=== PATIENT | male | born 2000 | race Caucasian/White ===

== ENCOUNTER 2024-12-17 00:48 | Day surgery (SDC) | payer SELFPAY ==
[2024-12-17] VITALS (12 sets, daily range): BP systolic 109–154; BP diastolic 57–91; PULSE 60–88; RESP 14–23; TEMP 36.3–36.6; O2SAT 98–100
--- OUTSIDE RECORDS SUMMARY | 2024-12-17 00:50 | XMS_ITS | Clinical Summary ---
Author Organization [facility] Address [address] [place] [address] Care Team Providers Care Cutter Operator Brick Name Role Phone Unavailable Primary Care Provider Unavailabl e Source Comments [facility],non-owned Affiliates and Associated Physician Practices is amultiple site organization consisting of ambulatory clinics and hospital sitesin [place], [place], [place] and [place]. This disclosure is being madepursuant to the Care Everywhere program and may not contain all information available regarding this patient. 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 Gender Identity Not on file Sexual Orientation Not on file Plan of Treatment Health Maintenance Due Date Last Done Comments HIV SCREENING 2014 HPV VACCINE (1 - Male 3-dose series) 2014 HEPATITIS C SCREENING 06/08/2017 DTAP/TDAP/TD VACCINES (1 - Tdap) 2018 HEPATITIS B VACCINE (1 of 3 - 19+ 3-dose series) 2018 COVID-19 VACCINE (1 - 2023-2 5 season) 2024 DEPRESSION SCREENING 08/01/2024 INFLUENZA VACCINE (Season Ended) 2025 ZOSTER VACCINE (1 of 2) 2049 HIB VACCINE Aged Out No longer eligi ble based on patient's age to complete this topic MENINGOCOCCAL (Group B) VACC INE SHARED DECISION-MAKING Aged Out No longer eligibl e based on patient's age to complete this topic MENINGOCOCCAL GROUPS A/C/Y/W VACCINE Aged Out No longer eligible b ased on patient's age to complete this topic PNEUMOCOCCAL VACCINE Aged Out No long er eligible based on patient's age to complete this topic Insurance MEDICAID - [place]
--- OUTSIDE RECORDS SUMMARY | 2024-12-17 00:50 | XMS_ITS | Clinical Summary ---
Author Organization [facility] Address [address] [place] [address] Care Team Providers Care Senior Test Engineer Name Role Phone Unavailable Primary Care Provider Unavailabl e Social History Tobacco Use Types Packs/Day Years Used Date Smoking Tobacco: Never Assessed Sex and Gender Information Value Date Recorded Sex Assigned at Not on file Legal Sex Male 5:58 PM CDT Gender Identity Not on file Sexual Orientation Not on file Plan of Treatment Health Maintenance Due Date Last Done Comments Annual Physical 2002 HPV Vaccines (1 - Male 3-dos e series) 2014 Hepatitis C 2017 DTaP, Tdap and Td Vaccines ( 1 - Tdap) 2018 Hepatitis B Vaccines (1 of 3 - 19+ 3-dose series) 2018 COVID-19 Vaccine (1 - 2023-2 5 season) 2024 Meningococcal B Vaccine Aged Out No l onger eligible based on patient's age to complete this topic Meningococcal Vaccine Aged Out No tiffanie liz eligible based on patient's age to complete this topic Pneumococcal Vaccine: Pediat rics (0 to 5 Years) and At-Risk Patients (6 to 49 Years) Aged Out No longer eligible b ased on patient's age to complete this topic RSV Immunizations Under 20 Months Aged Out No longer eligible based on patient's age to complete this topic
--- OUTSIDE RECORDS SUMMARY | 2024-12-17 02:20 | XMS_ITS | Clinical Summary ---
Author Organization [facility] Address [address] [place] [address] Phone Care Team Providers Care Digital Intern Name Role Phone Unavailable Primary Care Provider Unavailabl e Allergies No known active allergies Medications No known medications Active Problems No known active problems Family History Medical History Relation Name Comments No Known Problems Father No Known Problems Mother Relation Name Status Comments Father Mother Social History Tobacco Use Types Packs/Day Years Used Date Smoking Tobacco: Never Smokeless Tobacco: Never Alcohol Use Standard Drinks/Week Comments Not Currently 0 (1 standard drink = 0.6 oz pur e alcohol) PHQ-2 Answer Date Recorded Total Score - Questions 1-9 0 09/02 Sexually Active Control Partners Comments Yes Sex and Gender Information Value Date Recorded Sex Assigned at Not on file 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 Gender Identity Not on file Sexual Orientation Not on file Last Filed Vital Signs Vital Sign Reading Time Taken Comments Blood Pressure 116/80 09/24/2021 10:55 AM RETAIL GREETER Pulse 75 09/24/2021 10:55 AM RETAIL GREETER Temperature 36.9 C (98.4 F) 09/24/2021 10:55 AM RETAIL GREETER Respiratory Rate 14 09/24/2021 10:55 AM RETAIL GREETER Oxygen Saturation 98% 09/24/2021 10:55 AM RETAIL GREETER Inhaled Oxygen Concentration - - Weight 98.1 kg (216 lb 3.2 oz) 09/24/2021 10:55 AM RETAIL GREETER Height 182.9 cm (6') 09/24/2021 10:55 AM RETAIL GREETER Body Mass Index 29.32 09/24/2021 10:55 AM RETAIL GREETER Plan of Treatment Health Maintenance Due Date Last Done Comments Hepatitis C Virus (HCV) Screening 1999 Human Papillomavirus (HPV) Immunization (2 - Male 2-dose series) 12/06/2011 06/07/2011 SARS-COV-2 Immunization (3 - season) 2024 11/26/2020, 10/28/2020 Influenza Immunization (Season Ended) 2025 07/01/2021, 09/25/2020 Respiratory Syncytial Virus (RSV) Immunization (Adult) (1 - 1-dose 75+ series) 2074 Hepatitis B Immunization Completed 001, 1999, 1999 Pneumococcal Immunization Combined Aged Out 03/20/2001 No longer eligible based on patient's age to complete this topic DTaP/Tdap/Td Immunization Discontinued 2010, 05/07/2005, 05/20/2003, Additional history exists Meningococcal Immunization (ACWY) Aged Out 06/07/2011 No longer eligible based on patient's age to complete this topic TdaP Immunization Completed 06/07/2011 Rotavirus Immunization Aged Out No lo nger eligible based on patient's age to complete this topic Insurance
--- OUTSIDE RECORDS SUMMARY | 2024-12-17 02:20 | XMS_ITS | Encounter Summary ---
Author Organization [facility] Address [address] [place] [address] Care Team Providers Care Pouncer Name Role Phone No, Physician Primary Care Provider Kevin Allen MD Unavailable [phone] Encounter Details Date Type Department Care Team (Late st Contact Info) Description 10/14/2021 Documentation [facility] [address] [place] [address] [place] [id number] [address] Social History Tobacco Use Types Packs/Day Years Used Date Smoking Tobacco: Never AUDIT-C Answer Date Recorded Q1: How often do you have a drink containing alc ohol? 2-4 times a month 10/14/2021 Q2: How many drinks containi ng alcohol do you have on a typical day when you are drinking? 1 or 2 10/14/2021 Q3: How often do you have si x or more drinks on one occasion? Less than monthly 10/14/2021 Sex and Gender Information Value Date Recorded Sex Assigned at Not on file Legal Sex Male 8:50 AM CDT Gender Identity Not on file Sexual Orientation Not on file documented as of this encounter Functional Status documented as of this encounter Plan of Treatment Not on file documented as of this encounter Visit Diagnoses Not on filedocumented in this encounter Care Teams Pouncer Relationship Specialty Start Date End Date No, Physician PCP - General 03/24/21 [place] [id number] [address] Consulting Physician Gastroenterology 10/14/21 documented as of this encounter
--- OUTSIDE RECORDS SUMMARY | 2024-12-17 02:20 | XMS_ITS | Referral Summary ---
Author Organization [address] Address [address] [place] [address] Care Team Providers Care Echo Vasc Tech Name Role Phone No, Physician Primary Care Provider [phone] Kevin Allen MD Unavailable [phone] Allergies No known active allergies Medications pantoprazole DR (PROTONIX) 40 mg EC tablet Take 1 tablet (40 mg total) by mouth daily 30 tablet 10/14/2021 Active Active Problems Problem Noted Date Diagnosed Date Food bolus obstruction of intestine 10/14/2021 Immunizations Immunization Administration Dates Next Due Influenza, Unspecified 07/01/2021 Social History Tobacco Use Types Packs/Day Years [...] Sign Reading Time Taken Comments Blood Pressure 117/62 10/14/2021 11:15 AM CDT Pulse 84 10/14/2021 11:15 AM CDT Temperature 37.3 C (99.2 F) 10/14/2021 10:35 AM CDT Respiratory Rate 19 10/14/2021 11:15 AM CDT Oxygen Saturation 96% 10/14/2021 11:15 AM CDT Inhaled Oxygen Concentration - - Weight 95 kg (209 lb 8 oz) 10/14/2021 1:23 AM CD T Height 180.3 cm (5' 11 ) 10/14/2021 1:23 AM CDT Body Mass Index 29.22 10/14/2021 1:23 AM CDT Plan of Treatment Not on file Insurance [facility] ACCESS OOS [facility] ACC[facility]OS Advance Directives For more information, please contact: [phone] * Full Code (Latest Code Status on File) Date Activated Date Inactivated Comments 10/14/2021 9:36 AM 10/14/2021 6:11 PM * Full Code Date Activated Date Inactivated Comments 10/14/2021 1:24 AM 10/14/2021 9:36 AM Care Teams Echo Vasc Tech Relationship Specialty Start Date End Date No, Physician PCP - General 03/24/21 [place] [id number] [address] Consulting Physician Gastroenterology 10/14/21
--- OUTSIDE RECORDS SUMMARY | 2024-12-17 02:20 | XMS_ITS | Clinical Summary ---
Author Organization [address] Address [address] [place] [address] Care Team Providers Care Media Marketing Manager Name Role Phone No, Physician Primary Care Provider [phone] Kevin Allen MD Unavailable Allergies No known active allergies Medications pantoprazole DR (PROTONIX) 40 mg EC tablet Take 1 tablet (40 mg total) by mouth daily 30 tablet 10/14/2021 Active Active Problems Problem Noted Date Diagnosed Date Food bolus obstruction of intestine 10/14/2021 Immunizations Immunization Administration Dates Next Due Influenza, Unspecified 07/01/2021 Family History Medical History Relation Name Comments [...] on file Sexual Orientation Not on file Obstetrics History Last Filed Vital Signs Vital Sign Reading [...] Plan of Treatment Not on file Insurance [employer] O[employer] Advance Directives For more information, please contact: [phone] * Full Code (Latest Code Status on File) Date Activated Date Inactivated Comments 10/14/2021 9:36 AM 10/14/2021 6:11 PM * Full Code Date Activated Date Inactivated Comments 10/14/2021 1:24 AM 10/14/2021 9:36 AM Care Teams Media Marketing Manager Relationship Specialty Start Date End Date No, Physician PCP - General 03/24/21 [place] [id number] [address] Consulting Physician Gastroenterology 10/14/21
--- OUTSIDE RECORDS SUMMARY | 2024-12-17 02:20 | XMS_ITS | Clinical Summary ---
Author Organization [facility] Address [address] [place] [address] Care Team Providers Care Dialysis Technician Name Role Phone Unavailable Primary Care Provider [...]
--- OUTSIDE RECORDS SUMMARY | 2024-12-17 02:20 | XMS_ITS | Clinical Summary ---
Author Organization [facility] Address [address] [place] [address] Care Team Providers Care Steam And Gas Turbines Assembler Name Role Phone Unavailable Primary Care Provider Unavailabl e Source Comments [facility],non-owned Affiliates and Associated Physician Practices is amultiple site organization consisting of ambulatory clinics and hospital sitesin [place], [place], [place] and [place]. This disclosure is being madepursuant to the Care Everywhere program and may not contain all information available regarding this patient. 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
--- NOTE | 2024-12-17 02:26 | ED_ITS ---
HPI - Nausea/Vomiting/Diarrhea General Chief complaint: Skin/Abscess/Foreign Body Stated complaint: steak food bolus Time Seen by Provider: 12/17/24 01:50 History of Present Illness HPI Narrative: Patient was had history of food bolus requiring endoscopy presents here with what feels like food bolus, with steak stuck in his throat. Cannot keep anything down without throwing up Related Data Allergies Allergy/AdvReac Type Severity Reaction Status Date / Time No Known Allergies Allergy Unverified 12/17/24 00:49 Review of Systems Review of Systems: All systems reviewed & are unremarkable except as noted in HPI and below Exam Narrative: EXAMINATION OF ORGAN SYSTEMS/BODY AREAS: Constitutional: Vital signs per nursing GENERAL:[No acute distress, non-toxic appearing.] Spitting into cup HEAD: Normal with no signs of head trauma. EYES: EOMI, conjunctiva normal ENT: Hearing grossly intact LUNGS: Nonlabored breathing. HEART: [Regular rate and rhythm] ABD: [Soft], [nontender to palpation] EXT: Normal range of motion SKIN: [No rashes or lesions.] NEURO: [Alert and oriented x 3. No gross focal sensory or strength deficits.] PSYCH: Normal affect Course Vital Signs Vital signs: Vital Signs Temperature 97.4 F L 12/17/24 00:51 Pulse Rate 67 12/17/24 00:51 Respiratory Rate 18 12/17/24 00:51 Blood Pressure 138/77 12/17/24 00:51 Pulse Oximetry 99 12/17/24 00:51 Oxygen Delivery Room Air 12/17/24 00:51 Temperature 97.4 F L 12/17/24 00:51 Pulse Rate 67 12/17/24 00:51 Respiratory Rate 18 12/17/24 00:51 Blood Pressure 138/77 12/17/24 00:51 Pulse Oximetry 99 12/17/24 00:51 Oxygen Delivery Room Air 12/17/24 00:51 MDM - Nausea/Vomiting/Diarrhea MDM Narrative Medical decision making narrative: Patient presents with what feels like a food bolus. Had this in the past requiring endoscopy I did try swallow of carbonated beverage while jumping which patient obliged with then threw up immediately Discussed with GI who will schedule patient for 1st thing in the morning for OR. Recommended trying glucagon which is ordered Will likely be discharged after OR per pairer substandard Discharge Plan Discharge Clinical Impression: Food bolus obstruction of intestine Patient Disposition: Still a Patient Condition: Stable Patient Language: Dominican Follow-up/Referrals: PHYSICIAN,BARREL RIBS SOLDERER [Primary Care Provider] -
[2024-12-17 04:43] LABS: Basophils Absolute Auto 0.1 K/mm3 (0.0-0.1); Basophils Percent Auto 0.5 % (0.2-1.2); Eosinophils Absolute Auto 0.8 K/mm3 (0-0.3); Eosinophils Percent Auto 7.7 % (0-4.4); Hematocrit 47.3 % (42.0-52.0); Hemoglobin 15.4 g/dL (14.0-18.0); Immature Granulocyte Absolute 0.05 K/mm3 (0.00-0.031); Immature Granulocyte Percent A 0.5 % (0-0.5); Lymphocytes Percent Auto 29.6 % (18.3-44.2); Mean Corpuscular HGB Conc 32.6 g/dl (32-36); Mean Corpuscular Hemoglobin 28.9 pg (26-34); Mean Corpuscular Volume 88.7 fl (80-100); Mean Platelet Volume 10.7 fl (7.4-10.4); Monocytes Absolute Auto 0.6 K/mm3 (0.1-0.6); Monocytes Percent Auto 5.5 % (2.6-8.5); Neutrophils Absolute Auto 5.7 K/mm3 (1.3-6.7); Neutrophils Percent Auto 56.2 % (45.5-73.1); Platelet Count Result 241 k/mm3 (150-375); Red Blood Count 5.33 M/mm3 (4.6-6.20); Red Cell Distribution Width 12.8 % (11.5-14.5); White Blood Count 10.1 K/mm3 (4.5-10.0)
[2024-12-17 04:54] LABS: Anion Gap 10 mmol/L (4-12); Blood Urea Nitrogen 14 mg/dL (9-20); Calcium 9.4 mg/dL (8.4-10.2); Carbon Dioxide 26 mmol/L (22-30); Chloride 104 mmol/L (98-107); Estimated CRCL calculation 113 ml/min; Estimated Glomerular Filt Rate > 60; Glucose 90 mg/dL (65-110); Potassium 3.9 mmol/L (3.4-5.0); Sodium 140 mmol/L (137-145)
[2024-12-17] MEDS: LACTATED RINGERS 1,000 ML 150 ML IV CONT ×2 (05:39→05:45)
--- NOTE | 2024-12-17 05:49 | WPDANESEPPF ---
Anes - Initial Pre Proc Eval Procedure: Operation Date: 12/17/24 06:00 Proposed Procedures p Esophagogastroduodenoscopy - Andrea Méndez MD Date/Time: 12/17/24 05:49 Surgeon: Dev CAR Pre Op Diagnosis: steak food bolus Patient Data Age: 24 Gender: M Height: 1.8 m Weight: 84 kg Last Vital Signs Temp 97.8 F 12/17/24 05:37 Pulse 74 12/17/24 05:37 Resp 18 12/17/24 05:37 BP 145/80 H 12/17/24 05:37 Pulse Ox 99 12/17/24 05:37 O2 Del Method Room Air 12/17/24 05:37 Allergies Allergy/AdvReac Type Severity Reaction Status Date / Time No Known Allergies Allergy Verified 12/17/24 05:36 Laboratory Tests 12/17/24 12/17/24 04:37 04:38 WBC 10.1 H K/mm3 (4.5-10.0) RBC 5.33 M/mm3 (4.6-6.20) Hgb 15.4 g/dL (14.0-18.0) Hct 47.3 % (42.0-52.0) MCV 88.7 fl (80-100) MCH 28.9 pg (26-34) MCHC 32.6 g/dl (32-36) RDW 12.8 % (11.5-14.5) Plt Count 241 k/mm3 (150-375) MPV 10.7 H fl (7.4-10.4) Immature Gran % (Auto) 0.5 % (0-0.5) Neut % (Auto) 56.2 % (45.5-73.1) Lymph % (Auto) 29.6 % (18.3-44.2) Robertson % (Auto) 5.5 % (2.6-8.5) Eos % (Auto) 7.7 H % (0-4.4) Baso % (Auto) 0.5 % (0.2-1.2) Lymph # (Auto) 3.00 K/mm3 (0.9-3.2) Robertson # (Auto) 0.6 K/mm3 (0.1-0.6) Eos # (Auto) 0.8 H K/mm3 (0-0.3) Baso # (Auto) 0.1 K/mm3 (0.0-0.1) Abs Immat Gran (auto) 0.05 H K/mm3 (0.00-0.031) Absolute Neuts (auto) 5.7 K/mm3 (1.3-6.7) Absolute Nucleated RBC 0.000 K/mm3 (0.0-0.012) Nucleated RBC % 0.0 % (0.0-0.2) Sodium 140 mmol/L (137-145) Potassium 3.9 mmol/L (3.4-5.0) Chloride 104 mmol/L (98-107) Carbon Dioxide 26 mmol/L (22-30) Anion Gap 10 mmol/L (4-12) BUN 14 mg/dL (9-20) Creatinine 0.94 mg/dL (0.7-1.3) Estim Creat Clear Calc 113 ml/min Estimated GFR > 60 (59 - ) Glucose 90 mg/dL (65-110) Calcium 9.4 mg/dL (8.4-10.2) Patient hx anesthesia problems: none Family hx anesthesia problems: none Results Review: All pre-operative results and documents have been reviewed as part of the pre-operative evaluation. [facility] Past Medical History Medical History (Updated 12/17/24 @ 05:52 by Ivanna Moreno CRNA) Food bolus obstruction of intestine Anes - Eval Final PreProcedure Day of Procedure 12/17/24 05:49 Heart: regular rate and rhythm Lungs: clear to auscultation Airway: Mallampati scale class II Neurological: alert and oriented Last oral intake: >/= 8 hours ASA classification: II Emergent: no Anesthetic plan: proceed Anesthesia type and monitoring: general (GETT as back-up) GIVS and standard monitoring Results Review: All pre-operative results and documents have been reviewed as part of the pre-operative evaluation. Informed Consent: The patient's anesthetic plan and its attendant risks and benefits were discussed with the patient/family/POA. Questions were solicited and answers provided to the satisfaction of the patient/family/POA.
--- NOTE | 2024-12-17 06:39 | P.HP_ITS ---
H&P: HPI History of Present Illness Date/Time: 12/17/24 06:39 Chief Complaint: Food impaction Narrative: this patient has been suffering from intermittent dysphagia for several years, since childhood. Approximately 2 years ago he had a food impaction event being treated at [facility] but no definite diagnosis was made. Yesterday around 6:00 p.m. he felt severe dysphagia after eating meat, and tried to retch and drink water unsuccessfully. He decided to come to the emergency room around midnight. Review of Systems Review of Systems: All systems reviewed & are unremarkable except as noted in HPI and below Meds Home Medications and Allergies Allergies Allergy/AdvReac Type Severity Reaction Status Date / Time No Known Allergies Allergy Verified 12/17/24 05:36 Vital Signs Vital Signs - 24 hr 12/17/24 00:51 12/17/24 04:27 12/17/24 04:30 Temperature 97.4 F L Pulse Rate 67 76 69 Respiratory Rate 18 14 15 Blood Pressure 138/77 Pulse Oximetry 99 99 98 Oxygen Delivery Room Air 12/17/24 04:45 12/17/24 05:08 12/17/24 05:15 Temperature Pulse Rate 72 86 88 Respiratory Rate 18 20 23 H Blood Pressure 144/79 H Pulse Oximetry 98 98 100 Oxygen Delivery 12/17/24 05:16 12/17/24 05:28 12/17/24 05:37 Temperature 97.8 F Pulse Rate 71 74 Respiratory Rate 19 18 Blood Pressure 154/88 H 145/91 H 145/80 H Pulse Oximetry 98 99 Oxygen Delivery Room Air Exam Const: General: cooperative and healthy appearing Resp: Effort & Inspection: normal respiratory effort and able to speak in complete sentences Auscultation: clear to auscultation bilaterally Cardio: Rate: regular rate Rhythm: regular rhythm GI: Inspection: normal to inspection GI Palp: No No hepatosplenomegaly present Auscultation: normal bowel sounds Rectal Exam: deferred Skin: General skin exam: normal color Psych: Appearance: grossly normal Mental Status: mental status grossly normal H&P: Results Labs Labs: Short CBC 12/17/24 Range/Units 04:38 WBC 10.1 H (4.5-10.0) K/mm3 Hgb 15.4 (14.0-18.0) g/dL Hct 47.3 (42.0-52.0) % Plt Count 241 (150-375) k/mm3 [facility] 12/17/24 04:37 Sodium 140 Potassium 3.9 Chloride 104 Carbon Dioxide 26 BUN 14 Creatinine 0.94 Glucose 90 Calcium 9.4 Assessment and Plan Assessment and plan (1) Food impaction of esophagus: Code(s): T18.128A - Food in esophagus causing other injury, initial encounter; W44.F3XA - Food entering into or through a natural orifice, initial encounter Status: Acute Assessment and Plan: will proceed with EGD. The patient is deemed a good candidate for the procedure. Consent signed. Will proceed.
--- OUTSIDE RECORDS SUMMARY | 2024-12-17 06:54 | XMS_ITS | Clinical Summary ---
Author Organization [facility] Address [address] [place] [address] Care Team Providers Care Perioperative Educator Name Role Phone Unavailable Primary Care Provider Unavailabl e Source Comments [facility],non-owned Affiliates and Associated Physician Practices is amultiple site organization consisting of ambulatory clinics and hospital sitesin [place], [place], [place] and [place]. This disclosure is being madepursuant to the Care Everywhere program and may not contain all information available regarding this patient. Last updated 18.[facility] [employer] Social History Tobacco Use Types Packs/Day Years Used Date Smoking Tobacco: Never Assessed Sex and Gender Information Value Date Recorded Sex Assigned at Not on file Legal Sex Male 5:39 AM CHUTE PULLER Gender Identity Not on file Sexual Orientation [...]
--- OUTSIDE RECORDS SUMMARY | 2024-12-17 06:54 | XMS_ITS | Clinical Summary ---
Author Organization [address] Address [address] [place] [address] Care Team Providers Care Accounts Receivable Administrator Name Role Phone No, Physician Primary Care Provider [phone] Kevin Allen MD Unavailable Allergies No known [...] Plan of Treatment Not on file Insurance [employer] OOS [employer] Advance Directives For more information, please contact: [phone] * Full Code (Latest Code Status on File) Date Activated Date Inactivated Comments 10/14/2021 9:36 AM 10/14/2021 6:11 PM * Full Code Date Activated Date Inactivated Comments 10/14/2021 1:24 AM 10/14/2021 9:36 AM Care Teams Accounts Receivable Administrator Relationship Specialty Start Date End Date No, Physician PCP - General 03/24/21 [place] [id number] [address] Consulting Physician Gastroenterology 10/14/21
--- OUTSIDE RECORDS SUMMARY | 2024-12-17 06:54 | XMS_ITS | Clinical Summary ---
Author Organization [facility] Address [address] [place] [place] [address] Phone Care Team Providers Care Rehab Spec Name Role Phone Unavailable Primary Care Provider [...] on file Legal Sex Male 12:51 PM CHIEF TECHNICIAN X RAY Gender Identity Not on file Sexual Orientation Not on file Last Filed Vital Signs Vital Sign Reading Time Taken Comments Blood Pressure 116/80 09/24/2021 10:55 AM CHIEF TECHNICIAN X RAY Pulse 75 09/24/2021 10:55 AM CHIEF TECHNICIAN X RAY Temperature 36.9 C (98.4 F) 09/24/2021 10:55 AM CHIEF TECHNICIAN X RAY Respiratory Rate 14 09/24/2021 10:55 AM CHIEF TECHNICIAN X RAY Oxygen Saturation 98% 09/24/2021 10:55 AM CHIEF TECHNICIAN X RAY Inhaled Oxygen Concentration - - Weight 98.1 kg (216 lb 3.2 oz) 09/24/2021 10:55 AM CHIEF TECHNICIAN X RAY Height 182.9 cm (6') 09/24/2021 10:55 AM CHIEF TECHNICIAN X RAY Body Mass Index 29.32 09/24/2021 10:55 AM CHIEF TECHNICIAN X RAY Plan of Treatment Health Maintenance Due Date [...]
--- OUTSIDE RECORDS SUMMARY | 2024-12-17 06:54 | XMS_ITS | Referral Summary ---
Author Organization [address] Address [address] [place] [address] Care Team Providers Care Mixer Helper Name Role Phone No, Physician Primary Care Provider [phone] Kevin Allen MD Unavailable Allergies No known [...] Plan of Treatment Not on file Insurance [employer] ACCESS OOS [employer] ACC[employer]OS [employer]OS Advance Directives For more information, please contact: [phone] * Full Code (Latest Code Status on File) Date Activated Date Inactivated Comments 10/14/2021 9:36 AM 10/14/2021 6:11 PM * Full Code Date Activated Date Inactivated Comments 10/14/2021 1:24 AM 10/14/2021 9:36 AM Care Teams Mixer Helper Relationship Specialty Start Date End Date No, Physician PCP - General 03/24/21 [place] [id number] [address] Consulting Physician Gastroenterology 10/14/21
--- OUTSIDE RECORDS SUMMARY | 2024-12-17 06:54 | XMS_ITS | Encounter Summary ---
Author Organization [facility] Healthcare Address [address] [place] [address] Care Team Providers Care Electric Dolly Operator Name Role Phone No, Physician Primary Care Provider Kevin Allen MD Unavailable Encounter Details Date Type Department Care Team (Late st Contact Info) Description 10/14/2021 Documentation [facility] [address] [place] [address] [place] [id number] [address] Social History Tobacco Use Types [...] on filedocumented in this encounter Care Teams Electric Dolly Operator Relationship Specialty Start Date End Date No, Physician PCP - General 03/24/21 [place] [id number] [address] Consulting Physician Gastroenterology 10/14/21 documented as of this encounter
== END 2024-12-17 07:30 | disposition home or self-care (01) ==
PROVIDERS: Internal Medicine Gastroenterology; Visit Provider Emergency Medicine
PROC: 0DJ08ZZ Inspection of Upper Intestinal Tract, Via Natural or Artificial Opening Endoscopic (ICD-10-PCS; CPT 43239; principal; 2024-12-17 06:00)
DX: T18.128A Food in esophagus causing other injury, initial encounter (principal); W44.F3XA Food entering into or through a natural orifice, initial encounter; K20.0 Eosinophilic esophagitis
CPT/HCPCS: 43239; 43247; 36415; 80048; 85025; 88305; 96372; 99285; J2003; J2704; J7120